=== PATIENT | female | born 1990 | race African-American/Black ===

== ENCOUNTER 2023-11-23 10:05 | Inpatient (IN) | payer BC, OTHER ==
[2023-11-23] MEDS: ELECTROLYTE-148 SOLN 1,000 ML IV SCH ×2 (10:30→13:00)
[2023-11-23 10:48] VITALS: BMI 36.9
[2023-11-23 10:51] LABS: BASO % 0.5 % (0-2.0); EOS % 1.5 % (0-4.5); HEMATOCRIT 37.2 % (32.4-45.2); HEMOGLOBIN 12.5 GM/dL (10.7-15.3); LYMPH % 25.1 % (8-40); MCH 31.7 pg (25.7-33.7); MCHC 33.7 g/dl (32.0-36.0); MEAN CELL VOLUME 93.9 fl (80-96); MEAN PLT VOLUME 8.9 fl (7.5-11.1); MONO % 9.4 % (3.8-10.2); NEUT % 63.5 % (42.8-82.8); PLATELET COUNT 225 10^3/uL (134-434); RBC 3.96 M/mm3 (3.60-5.2); WHITE BLOOD COUNT 8.2 K/mm3 (4.0-10.0)
[2023-11-23] MEDS ORDERED: BUTORPHANOL TARTRATE 2 MG/ML VIAL ONE (10:58)
[2023-11-23] MEDS ORDERED: PROMETHAZINE HCL 25 MG/1 ML VIAL ONE (10:58)
[2023-11-23] MEDS ORDERED: OXYTOCIN 20 UNITS in 0.9% NS 20 UNIT/1,000 ML INFUS.BAG IV ONE (11:02)
[2023-11-23 11:05] LABS: POTASSIUM 3.7 mmol/L (3.5-5.1)
[2023-11-23 11:06] LABS: CALCIUM 9.3 mg/dL (8.5-10.1)
[2023-11-23 11:10] LABS: CREATININE 0.5 mg/dL (0.55-1.3)
[2023-11-23 11:49] LABS: SYPHILIS W/ RPR CONF NON-REACTIVE (NONREACTIVE)
[2023-11-23] MEDS: OXYTOCIN 30 UNITS in 0.9% NS 30 UNIT/500 ML INFUS.BAG IVPB SCH (12:00)
[2023-11-23] MEDS: BUTORPHANOL TARTRATE 2 MG/ML VIAL IVPB ONE (12:15)
[2023-11-23] MEDS: PROMETHAZINE HCL 25 MG/1 ML VIAL IVPB ONE (12:15)
[2023-11-23 12:17] LABS: HIV INTERPRETATION NEGATIVE (NEGATIVE)
[2023-11-23] MEDS ORDERED: BENZOCAINE 28 GM HEMORRHOIDAL OINTMENT TP PRN (14:35)
[2023-11-23] MEDS ORDERED: METHYLERGONOVINE MALEATE 0.2 MG/1 ML AMP IM PRN (14:35)
[2023-11-23] MEDS ORDERED: WITCH HAZEL 50% (TUCKS) 40 PAD/JAR PAD TP PRN (14:35)
[2023-11-23] MEDS ORDERED: BENZOCAINE 20% 57 GM BOTTLE TP PRN (14:35)
[2023-11-23] MEDS ORDERED: IBUPROFEN 600 MG TABLET (FP) PO PRN (14:35)
[2023-11-23] MEDS ORDERED: BISACODYL 10 MG SUPP.RECT RC PRN (14:35)
[2023-11-23] MEDS ORDERED: oxyCODONE HCL 5 MG TABLET PO PRN (14:35)
[2023-11-23] MEDS ORDERED: ACETAMINOPHEN 325 MG TABLET (FP) PO PRN (14:35)
[2023-11-23] MEDS: OXYTOCIN 20 UNITS in 0.9% NS 20 UNIT/1,000 ML INFUS.BAG IV SCH (14:35)
[2023-11-24 08:25] LABS: BASO % 0.2 % (0-2.0); HEMATOCRIT 36.4 % (32.4-45.2); HEMOGLOBIN 12.4 GM/dL (10.7-15.3); LYMPH % 18.8 % (8-40); MCH 32.1 pg (25.7-33.7); MEAN CELL VOLUME 94.4 fl (80-96); MEAN PLT VOLUME 9.1 fl (7.5-11.1); MONO % 8.1 % (3.8-10.2); NEUT % 71.9 % (42.8-82.8); PLATELET COUNT 204 10^3/uL (134-434); RBC 3.85 M/mm3 (3.60-5.2); RDW 14.2 % (11.6-15.6); WHITE BLOOD COUNT 10.6 K/mm3 (4.0-10.0)
[2023-11-24] MEDS: FERROUS SO4 325 MG TABLET (FP) PO SCH (09:21)
[2023-11-24] MEDS: PRENATAL VITAMINS W/ FOLIC ACID TABLET (FP) PO SCH (09:21)
[2023-11-24] MEDS ORDERED: SENNOSIDES/DOCUSATE COMBO (SENNA PLUS) TABLET (UD) PO PRN (22:00)
[2023-11-25 10:46] VITALS: BP 118/74; PULSE 82; RESP 16; TEMP 98
== END 2023-11-25 14:00 | disposition home or self-care (01) | DRG 807 ==
LOC: JLDR 10:05 → J3W 16:31
PROVIDERS: ADMIT Obstetrics & Gynecology; ATTEND Obstetrics & Gynecology
PROC: 10E0XZZ Delivery of Products of Conception, External Approach (ICD-10-PCS; principal; 2023-11-23)
PROC: 0W8NXZZ Division of Female Perineum, External Approach (ICD-10-PCS; 2023-11-23)
PROC: 0HQ9XZZ Repair Perineum Skin, External Approach (ICD-10-PCS; 2023-11-23)
DX: O70.0 First degree perineal laceration during delivery (principal); Z3A.38 38 weeks gestation of pregnancy; Z37.0 Single live birth
CPT/HCPCS: 36415; 59409; 80048; 85025; 85730; 86780; 86803; 86850; 86900; 86901; 87389